=== PATIENT | female | born 1980 | race Caucasian/White ===

== ENCOUNTER 2017-03-21 17:24 | Emergency (ER) | payer SELFPAY ==
--- NOTE | 2017-03-21 17:58 | EDM.PDOC ---
ED HPI GENERAL MEDICAL PROBLEM - General Chief Complaint: Medication Administration Stated Complaint: UNK Time Seen by Provider: 03/21/17 17:34 - History of Present Illness INITIAL COMMENTS - FREE TEXT/NARRATIVE: HISTORY AND PHYSICAL: History of present illness: The patient is a 36-year-old female who presents requesting a medication refill for her Seroquel as she has "misplaced them". Patient follows at [facility] with Shara Maher and states that she misplaced her medication and that without her Seroquel she starts feeling off balance and somewhat "citlali" and she is concerned about that occurring and wants to intercept that. She says she is unable to sleep without this medication as well. Patient denies any systemic complaints and has been eating and drinking normally. Review of systems: As per history of present illness and below otherwise all systems reviewed and negative. Past medical history: As per history of present illness and as reviewed below otherwise noncontributory. Surgical history: As per history of present illness and as reviewed below otherwise noncontributory. Social history: No reported history of drug or alcohol abuse. Family history: As per history of present illness and as reviewed below otherwise noncontributory. Physical exam: Gen.: Well-developed well-nourished female who is nontoxic and vital signs reviewed by me. She has a somewhat flat effect on my interaction with speaks clearly and easily and is cooperative HEENT: Atraumatic, normocephalic, negative for conjunctival pallor or scleral icterus, mucous membranes moist, neck supple, nontender, trachea midline. Lungs: Clear to auscultation, breath sounds equal bilaterally, chest nontender. Heart: S1S2, regular rate and rhythm no overt murmurs Abdomen: Deferred Pelvis: Deferred Genitourinary: Deferred. Rectal: Deferred. Extremities: Atraumatic, full range of motion without defects or deficits Neurovascular grossly unremarkable. Neuro: Awake, alert, oriented. Gait intact into the ER Motor and sensory unremarkable throughout. Exam nonfocal. Diagnostics: [] Therapeutics: [] Discussed with the patient for some time about my discomfort with riding her prescription for Seroquel and in fact no pharmacies are open nor does [facility] have this medication currently. I agreed to give her 1 dose of her Seroquel 300 mg to take now and have advised her to contact her provider at [facility] first thing in the morning to get an appointment for a refill. I advised her that if she is unable to get in the clinic that she can call our clinic at 8 AM to get an expedited ER follow-up and address her concerns and issues. Please note that she did tell nursing when she was being triaged that when she called [facility] and she about a refill order she says that they told her they had "no record of that refill". The patient seems agreeable with this plan and understands my concerns with writing prescriptions of a drug for this problem without being her primary provider. Impression: Medication refill Definitive disposition and diagnosis as appropriate pending reevaluation and review of above. - Related Data Allergies Allergy/AdvReac Type Severity Reaction Status Date / Time amoxicillin Allergy Vomiting Verified 03/21/17 17:35 Home Meds: Home Meds Eszopiclone [Lunesta] 2 mg PO DAILY 03/21/17 [History] QUEtiapine Fumarate [Seroquel] 300 mg PO DAILY 03/21/17 [History] Past Medical History HEENT History: Reports: None Cardiovascular History: Reports: None Respiratory History: Reports: None Gastrointestinal History: Reports: None Genitourinary History: Reports: None HOME CARE COMPANION History: Reports: None Musculoskeletal History: Reports: None Neurological History: Reports: None Psychiatric History: Reports: ADD, Bipolar, Depression Endocrine/Metabolic History: Reports: None Hematologic History: Reports: None Immunologic History: Reports: None Oncologic (Cancer) History: Reports: None Dermatologic History: Reports: None - Infectious Disease History Infectious Disease History: Reports: Chicken Pox - Past Surgical History Head Surgeries/Procedures: Reports: None HEENT Surgical History: Reports: None Cardiovascular Surgical History: Reports: None Respiratory Surgical History: Reports: None GI Surgical History: Reports: None Female Surgical History: Reports: None Neurological Surgical History: Reports: None Musculoskeletal Surgical History: Reports: None Dermatological Surgical History: Reports: None Social & Family History - Family History Family Medical History: Noncontributory - Tobacco Use Smoking Status *Q: Never Smoker - Caffeine Use Caffeine Use: Reports: Coffee - Recreational Drug Use Recreational Drug Use: No ED ROS GENERAL - Review of Systems Review Of Systems: ROS reveals no pertinent complaints other than HPI. ED EXAM, GENERAL - Physical Exam Exam: See Below (see dictation) Course - Vital Signs Last Recorded V/S: Last Vital Signs Temp 37.1 C 03/21/17 17:36 Pulse 88 03/21/17 17:36 Resp 18 03/21/17 17:36 BP 103/68 03/21/17 17:36 Pulse Ox 99 03/21/17 17:36 - Orders/Labs/Meds Orders: Active Orders 24 hr Category Date Time Status QUEtiapine [SEROquel] Med 03/22/17 17:48 Once 300 mg PO ONETIME ONE Medication Orders Quetiapine Fumarate (Seroquel) 300 mg PO ONETIME ONE Stop: 03/22/17 17:49 Meds: Medications Generic Name Dose Route Start Last Admin Trade Name Freq PRN Reason Stop Dose Admin Quetiapine Fumarate 300 mg 03/22/17 17:48 Seroquel PO 03/22/17 17:49 ONETIME ONE Departure - Departure Time of Disposition: 17:58 Disposition: Home, Self-Care 01 Condition: Good Clinical Impression: Medication refill - Discharge Information Referrals: Aparna Maher NP [Primary Care Provider] - Additional Instructions: The following information is given to patients seen in the emergency department who are being discharged to home. This information is to outline your options for follow-up care. We provide all patients seen in our emergency department with a follow-up referral. The need for follow-up, as well as the timing and circumstances, are variable depending upon the specifics of your emergency department visit. If you don't have a primary care physician on staff, we will provide you with a referral. We always advise you to contact your personal physician following an emergency department visit to inform them of the circumstance of the visit and for follow-up with them and/or the need for any referrals to a consulting specialist. The emergency department will also refer you to a specialist when appropriate. This referral assures that you have the opportunity for followup care with a specialist. All of these measure are taken in an effort to provide you with optimal care, which includes your followup. Under all circumstances we always encourage you to contact your private physician who remains a resource for coordinating your care. When calling for followup care, please make the office aware that this follow-up is from your recent emergency room visit. If for any reason you are refused follow-up, please contact the [facility] emergency department at and ask to speak to the emergency department charge nurse. [facility] [address] [place], [place] [id number] [facility] [address] [place], [place] [phone] Please contact her provider at [facility] tomorrow for a follow-up appointment and refill for your prescription for one of our providers for an expedited ER follow-up as we discussed. Return to ER as needed - My Orders Last 24 Hours: My Active Orders 03/22/17 17:48 QUEtiapine [SEROquel] 300 mg PO ONETIME ONE - Assessment/Plan Last 24 Hours: My Active Orders 03/22/17 17:48 QUEtiapine [SEROquel] 300 mg PO ONETIME ONE
[2017-03-21 18:45] VITALS: BP 103/68
[2017-03-22] MEDS ORDERED: QUEtiapine 100 MG Tab PO ONE (17:48)
== END 2017-03-21 18:26 | disposition home or self-care (01) ==
LOC: MW.ED 17:24
DX: Z76.0 Encounter for issue of repeat prescription (principal); Z88.1 Allergy status to other antibiotic agents; Z79.899 Other long term (current) drug therapy
CPT/HCPCS: 99281; A9270; 99282

== ENCOUNTER 2017-11-21 11:42 | Emergency (ER) | payer BC ==
[2017-11-21 11:53] VITALS: BP 115/88
--- NOTE | 2017-11-21 12:06 | EDM.PDOC ---
ED HPI GENERAL MEDICAL PROBLEM - General Chief Complaint: General Stated Complaint: PT WOULD LIKE TO REFILL HER Rx Time Seen by Provider: 11/21/17 12:00 Source of Information: Reports: Patient History Limitations: Reports: No Limitations - History of Present Illness INITIAL COMMENTS - FREE TEXT/NARRATIVE: HISTORY AND PHYSICAL: History of present illness: [Comes to the emergency room requesting a refill of her medication. She ran out of it several days ago and is unable to reach her local pharmacy today as they' re closed on Sundays. She takes Seroquel for stabilization and has been out of this medication for the last several days. She follows regularly with Daisha Richard and is scheduled for follow-up on Wednesday. She has no worsening complaints or concerns but doesn't want to miss any more doses of her medication. Review of systems: As per history of present illness and below otherwise all systems reviewed and negative. Past medical history: As per history of present illness and as reviewed below otherwise noncontributory. Surgical history: As per history of present illness and as reviewed below otherwise noncontributory. Social history: No reported history of drug or alcohol abuse. Family history: As per history of present illness and as reviewed below otherwise noncontributory. Physical exam: HEENT: Atraumatic, normocephalic. luciano. Negative for masses or hepatosplenomegaly. Negative for costovertebral tenderness. Pelvis: Stable nontender. Genitourinary: Deferred. Rectal: Deferred. Extremities: Atraumatic in appearance, full range of motion without difficulty. No swelling or cyanosis to her feet or lower legs. Neurovascular unremarkable. Neuro: Awake, alert, oriented. Motor and sensory unremarkable throughout. Exam nonfocal. Impression: [ Medication refill] Plan: [Written Rx's for Seroquel 300mg (#30) si po qhs 0 RF's, Seroquel 50mg (#30 ) si po qhs 0 RF's. follow-up with provider as scheduled. Return to ER as needed as discussed. She is in agreement with today's plan. ] Definitive disposition and diagnosis as appropriate pending reevaluation and review of above. - Related Data Allergies Allergy/AdvReac Type Severity Reaction Status Date / Time amoxicillin Allergy Vomiting Verified 03/21/17 17:35 Home Meds: Home Meds QUEtiapine Fumarate [Seroquel] 350 mg PO DAILY 03/21/17 [History] Zolpidem Tartrate [Ambien Cr] 1 tab PO BEDTIME 11/21/17 [History] Past Medical History HEENT History: Reports: None Cardiovascular History: Reports: None Respiratory History: Reports: None Gastrointestinal History: Reports: None Genitourinary History: Reports: None TERMINATION CLERK History: Reports: None Musculoskeletal History: Reports: None Neurological History: Reports: None Psychiatric History: Reports: ADD, Bipolar, Depression Endocrine/Metabolic History: Reports: None Hematologic History: Reports: None Immunologic History: Reports: None Oncologic (Cancer) History: Reports: None Dermatologic History: Reports: None - Infectious Disease History Infectious Disease History: Reports: Chicken Pox - Past Surgical History Head Surgeries/Procedures: Reports: None HEENT Surgical History: Reports: None Cardiovascular Surgical History: Reports: None Respiratory Surgical History: Reports: None GI Surgical History: Reports: None Female Surgical History: Reports: None Neurological Surgical History: Reports: None Other Musculoskeletal Surgeries/Procedures:: right ankle surgery Dermatological Surgical History: Reports: None Social & Family History - Family History Family Medical History: Noncontributory - Tobacco Use Smoking Status *Q: Current Some Day Smoker Years of Tobacco use: 10 Packs/Tins Daily: 0.1 - Caffeine Use Caffeine Use: Reports: Coffee - Recreational Drug Use Recreational Drug Use: No ED ROS GENERAL - Review of Systems Review Of Systems: ROS reveals no pertinent complaints other than HPI. ED EXAM, GENERAL - Physical Exam Exam: See Below Course - Vital Signs Last Recorded V/S: Last Vital Signs Temp 98.1 F 11/21/17 11:51 Pulse 76 11/21/17 11:51 Resp 18 11/21/17 11:51 BP 115/88 11/21/17 11:51 Pulse Ox 96 11/21/17 11:51 Departure - Departure Time of Disposition: 12:10 Disposition: Home, Self-Care 01 Condition: Good Clinical Impression: Medication refill - Discharge Information Instructions: Medicine Refill at the Emergency Department Referrals: PCP,None [Primary Care Provider] - Forms: ED Department Discharge Additional Instructions: The following information is given to patients seen in the emergency department who are being discharged to home. This information is to outline your options for follow-up care. We provide all patients seen in our emergency department with a follow-up referral. The need for follow-up, as well as the timing and circumstances, are variable depending upon the specifics of your emergency department visit. If you don't have a primary care physician on staff, we will provide you with a referral. We always advise you to contact your personal physician following an emergency department visit to inform them of the circumstance of the visit and for follow-up with them and/or the need for any referrals to a consulting specialist. The emergency department will also refer you to a specialist when appropriate. This referral assures that you have the opportunity for follow-up care with a specialist. All of these measure are taken in an effort to provide you with optimal care, which includes your follow-up. Under all circumstances we always encourage you to contact your private physician who remains a resource for coordinating your care. When calling for follow-up care, please make the office aware that this follow-up is from your recent emergency room visit. If for any reason you are refused follow-up, please contact the [facility] emergency department at and asked to speak to the emergency department charge nurse. [facility] [address] [place] [id number] Follow-up with your doctor if you have scheduled for Wednesday. Take all medications as prescribed. Return to ER as needed as discussed.
== END 2017-11-21 12:15 | disposition home or self-care (01) ==
LOC: MW.ED 11:42
DX: Z76.0 Encounter for issue of repeat prescription (principal); F17.210 Nicotine dependence, cigarettes, uncomplicated; F31.9 Bipolar disorder, unspecified; F98.8 Other specified behavioral and emotional disorders with onset usually occurring in childhood and adolescence; Z79.899 Other long term (current) drug therapy; Z88.1 Allergy status to other antibiotic agents
CPT/HCPCS: 99281

== ENCOUNTER 2019-02-21 12:44 | Emergency (ER) | payer BC, OTHER ==
[2019-02-21 12:55] VITALS: BP 132/88; PULSE 80
--- NOTE | 2019-02-21 13:15 | EDM.PDOC ---
ED HPI GENERAL MEDICAL PROBLEM - General Chief Complaint: MERCHANDISER Problem Stated Complaint: SPOKE WITH NURSE Time Seen by Provider: 02/21/19 12:48 Source of Information: Reports: Patient History Limitations: Reports: No Limitations - History of Present Illness INITIAL COMMENTS - FREE TEXT/NARRATIVE: History of present illness: []Patient states she is 6 weeks by dates and having left lower pelvic pain. Concerned she may have an ectopic . [facility] that was positive and also did one at home prior to that appointment. She denies any vaginal bleeding or pain with urination, nausea, vomiting or discharge. Review of systems: As per history of present illness and below otherwise all systems reviewed and negative. Past medical history: As per history of present illness and as reviewed below otherwise noncontributory. Surgical history: As per history of present illness and as reviewed below otherwise noncontributory. Social history: No reported history of drug or alcohol abuse. Family history: As per history of present illness and as reviewed below otherwise noncontributory. Physical exam: General: Well developed, well nourished in NAD HEENT: Atraumatic, normocephalic, pupils reactive, negative for conjunctival pallor or scleral icterus, mucous membranes moist, throat clear, neck supple, nontender, trachea midline. Lungs: Clear to auscultation, breath sounds equal bilaterally, chest nontender. Heart: S1S2, regular, negative for clicks, rubs, or JVD. Abdomen: NABS, Soft, nondistended, nontender. Negative for masses or hepatosplenomegaly. Negative for costovertebral tenderness. Pelvis: Stable nontender. Genitourinary: Deferred. Rectal: Deferred. Extremities: Atraumatic, negative for cords or calf pain. Neurovascular unremarkable. Neuro: Awake, alert, oriented. Cranial nerves II through XII unremarkable. Cerebellum unremarkable. Motor and sensory unremarkable throughout. Exam nonfocal. Skin:warm and dry Diagnostics: HCG Quant transvaginal ultrasound- 6 week 2 day IUP, left ovary with collapsing corpus luteum cyst Therapeutics: None ED Course: Stable Impression: IUP 6 weeks 2 days Prescriptions: none Plan: Take meds as directed, follow up with your primary care physician, return to ER if symptoms worsen or change. Definitive disposition and diagnosis as appropriate pending reevaluation and review of above. - Related Data Allergies Allergy/AdvReac Type Severity Reaction Status Date / Time amoxicillin Allergy Vomiting Verified 02/21/19 12:51 Home Meds: Home Meds QUEtiapine Fumarate [Seroquel] 350 mg PO DAILY 03/21/17 [History] Zolpidem [Ambien] 10 mg PO BEDTIME 02/21/19 [History] Past Medical History HEENT History: Reports: None Cardiovascular History: Reports: None Respiratory History: Reports: None Gastrointestinal History: Reports: None Genitourinary History: Reports: None MERCHANDISER History: Reports: Musculoskeletal History: Reports: None Neurological History: Reports: None Psychiatric History: Reports: ADD, Bipolar, Depression Endocrine/Metabolic History: Reports: None Hematologic History: Reports: None Immunologic History: Reports: None Oncologic (Cancer) History: Reports: None Dermatologic History: Reports: None - Infectious Disease History Infectious Disease History: Reports: Chicken Pox - Past Surgical History Head Surgeries/Procedures: Reports: None HEENT Surgical History: Reports: None Cardiovascular Surgical History: Reports: None Respiratory Surgical History: Reports: None GI Surgical History: Reports: None Female Surgical History: Reports: None Neurological Surgical History: Reports: None Other Musculoskeletal Surgeries/Procedures:: right ankle surgery Dermatological Surgical History: Reports: None Social & Family History - Family History Family Medical History: Noncontributory - Tobacco Use Smoking Status *Q: Never Smoker Second Hand Smoke Exposure: No - Caffeine Use Caffeine Use: Reports: None - Recreational Drug Use Recreational Drug Use: No ED ROS GENERAL - Review of Systems Review Of Systems: See Below ED EXAM - Physical Exam Exam: See Below Course - Vital Signs Last Recorded V/S: Last Vital Signs Temp 97.3 F 02/21/19 12:53 Pulse 80 02/21/19 12:53 Resp 16 02/21/19 12:53 BP 132/88 02/21/19 12:53 Pulse Ox 99 02/21/19 12:53 - Orders/Labs/Meds Orders: Active Orders 24 hr Category Date Time Status OB Transvaginal [US] Stat Exams 02/21/19 13:04 Ordered HCG QUANTITATIVE [CHEM] Stat Lab 02/21/19 13:23 Received Departure - Departure Time of Disposition: 13:51 Disposition: Home, Self-Care 01 Condition: Good Clinical Impression: Threatened Qualifiers: Weeks of gestation: less than 8 weeks Qualified Code(s): Z3A.01 - Less than 8 weeks gestation of Clinical Impression: (Ruled Out): Normal IUP (intrauterine ) on ultrasound - Discharge Information *PRESCRIPTION DRUG MONITORING PROGRAM REVIEWED*: No *COPY OF PRESCRIPTION DRUG MONITORING REPORT IN PATIENT MAC: No Referrals: PCP,Unknown [Primary Care Provider] - Forms: ED Department Discharge Additional Instructions: The following information is given to patients seen in the emergency department who are being discharged to home. This information is to outline your options for follow-up care. We provide all patients seen in our emergency department with a follow-up referral. The need for follow-up, as well as the timing and circumstances, are variable depending upon the specifics of your emergency department visit. If you don't have a primary care physician on staff, we will provide you with a referral. We always advise you to contact your personal physician following an emergency department visit to inform them of the circumstance of the visit and for follow-up with them and/or the need for any referrals to a consulting specialist. The emergency department will also refer you to a specialist when appropriate. This referral assures that you have the opportunity for follow-up care with a specialist. All of these measure are taken in an effort to provide you with optimal care, which includes your follow-up. Under all circumstances we always encourage you to contact your private physician who remains a resource for coordinating your care. When calling for follow-up care, please make the office aware that this follow-up is from your recent emergency room visit. If for any reason you are refused follow-up, please contact the [facility] Emergency Department at and asked to speak to the emergency department charge nurse. Take meds as directed, follow up with your primary care physician, return to ER if symptoms worsen or change. [facility] - [facility] [address] [place] [id number] - My Orders Last 24 Hours: My Active Orders 02/21/19 13:04 OB Transvaginal [US] Stat 02/21/19 13:23 HCG QUANTITATIVE [CHEM] Stat - Assessment/Plan Last 24 Hours: My Active Orders 02/21/19 13:04 OB Transvaginal [US] Stat 02/21/19 13:23 HCG QUANTITATIVE [CHEM] Stat
--- NOTE | 2019-02-21 14:38 | US ---
1st trimester obstetrical ultrasound: Multiple real-time images were obtained transvaginally. Comparison: No previous study. Dates: LMP: LMP given as 01/12/19, MIKEL 10/19/19, gestational age 5 weeks 5 days Current ultrasound: MIKEL 10/16/19, gestational age 6 weeks 1 day Single intrauterine gestation is seen. Amniotic fluid volume is normal. Small pole is seen. Maternal ovaries are felt to be within normal limits. Measurements: [place]-rump length: 2.74 mm - 6 weeks 0 days Mean sac diameter: 1.50 cm - 6 weeks 2 days Heart rate: 97 BPM Impression: 1. Single intrauterine gestation. Dates as noted above. 2. Low heart activity believed to be due to early gestational age. 3. No complicating process is seen by ultrasound at this time. Diagnostic code #2 [id number]
== END 2019-02-21 14:02 | disposition home or self-care (01) ==
LOC: MW.ED 12:44
DX: O20.0 Threatened abortion (principal); O99.341 Other mental disorders complicating pregnancy, first trimester; F32.9 Major depressive disorder, single episode, unspecified; F90.9 Attention-deficit hyperactivity disorder, unspecified type; Z88.1 Allergy status to other antibiotic agents; Z79.899 Other long term (current) drug therapy; Z3A.01 Less than 8 weeks gestation of pregnancy
CPT/HCPCS: 36415; 76817; 76817-26; 84702; 99283; 99284-25

== ENCOUNTER 2019-03-27 21:49 | Emergency (ER) | payer OTHER ==
--- NOTE | 2019-03-27 22:24 | EDM.PDOC ---
ED HPI GENERAL MEDICAL PROBLEM - General Chief Complaint: Abdominal Pain Stated Complaint: CONSTIPATION Time Seen by Provider: 03/27/19 21:56 Source of Information: Reports: Patient History Limitations: Reports: No Limitations - History of Present Illness INITIAL COMMENTS - FREE TEXT/NARRATIVE: HISTORY AND PHYSICAL: History of present illness: Patient is a 38-year-old female presents to the ED today with concern of having constipation in . Patient states she is only here in the ED because she wants to know what she can safely take for constipation. Patient states she has tried drinking more water, eating more fruits and vegetables, herbal supplementation, and exercise. Patient states she has not tried any over-the- counter medications. Patient states she's having a bowel movement every other day but she is used to having a bowel movement daily. Patient states that she brought up the constipation with her provider at [facility] but does not feel like she had a full explanation to what to do. Patient states she has been scared to eat because she has not had regular bowel movements. Patient denies any other symptoms or concerns. Patient denies fever, chills, chest pain, shortness of breath, or cough. Denies headache, neck stiff ness, change in vision, syncope, or near syncope. Denies nausea, vomiting, abdominal pain, diarrhea, or dysuria. Has not noted any blood in urine or stool. Patient has been eating and drinking appropriately. Review of systems: As per history of present illness and below otherwise all systems reviewed and negative. Past medical history: As per history of present illness and as reviewed below otherwise noncontributory. Surgical history: As per history of present illness and as reviewed below otherwise noncontributory. Social history: See social history for further information Family history: As per history of present illness and as reviewed below otherwise noncontributory. Physical exam: General: Patient is alert, oriented, and in no acute distress. Patient sitting comfortably on exam table. HEENT: Atraumatic, normocephalic, pupils equal and reactive bilaterally, negative for conjunctival pallor or scleral icterus, mucous membranes moist, TMs normal bilaterally, throat clear, neck supple, nontender, trachea midline. No drooling or trismus noted. No meningeal signs. No hot potato voice noted. Lungs: Clear to auscultation, breath sounds equal bilaterally, chest nontender. Heart: S1S2, regular rate and rhythm without overt murmur Abdomen: Soft, nondistended, nontender. Negative for masses or hepatosplenomegaly. Negative for costovertebral tenderness. Pelvis: Stable nontender. Genitourinary: Deferred. Rectal: Deferred. Skin: Intact, warm, dry. No lesions or rashes noted. Extremities: Atraumatic, negative for cords or calf pain. Neurovascular unremarkable. Neuro: Awake, alert, oriented. Cranial nerves II through XII unremarkable. Cerebellum unremarkable. Motor and sensory unremarkable throughout. Exam nonfocal. Notes: Discussed the importance for follow-up with her [employer] women's health provider. Voices understanding and is agreeable to plan of care. Denies any further questions or concerns at this time. Diagnostics: None Therapeutics: None Prescription: None Impression: Medical screening exam History of constipation Plan: 1. You can use Colace, MiraLAX, Metamucil, milk of magnesia safely in for constipation symptoms. 2. Follow-up with your [employer] provider as scheduled and as discussed. 3. You can use Tylenol as directed for pain and discomfort. This is also safe to use in . 4. Return to the ED as needed and as discussed. Definitive disposition and diagnosis as appropriate pending reevaluation and review of above. ABD Pain Score (Numeric/FACES): 5 - Related Data Allergies Allergy/AdvReac Type Severity Reaction Status Date / Time amoxicillin Allergy Vomiting Verified 03/27/19 22:10 Home Meds: Home Meds QUEtiapine Fumarate [Seroquel] 350 mg PO DAILY 03/21/17 [History] Zolpidem [Ambien] 10 mg PO BEDTIME 02/21/19 [History] Past Medical History HEENT History: Reports: None Cardiovascular History: Reports: None Respiratory History: Reports: None Gastrointestinal History: Reports: None Genitourinary History: Reports: None [employer] History: Reports: Musculoskeletal History: Reports: None Neurological History: Reports: None Psychiatric History: Reports: ADD, Bipolar, Depression Endocrine/Metabolic History: Reports: None Hematologic History: Reports: None Immunologic History: Reports: None Oncologic (Cancer) History: Reports: None Dermatologic History: Reports: None - Infectious Disease History Infectious Disease History: Reports: Chicken Pox - Past Surgical History Head Surgeries/Procedures: Reports: None HEENT Surgical History: Reports: None Cardiovascular Surgical History: Reports: None Respiratory Surgical History: Reports: None GI Surgical History: Reports: None Female Surgical History: Reports: None Neurological Surgical History: Reports: None Other Musculoskeletal Surgeries/Procedures:: right ankle surgery Dermatological Surgical History: Reports: None Social & Family History - Family History Family Medical History: Noncontributory - Caffeine Use Caffeine Use: Reports: None ED ROS GENERAL - Review of Systems Review Of Systems: ROS reveals no pertinent complaints other than HPI. ED EXAM, GENERAL - Physical Exam Exam: See Below (See dictation) Course - Vital Signs Last Recorded V/S: Last Vital Signs Temp 96.8 F 03/27/19 22:05 Pulse 81 03/27/19 22:05 Resp 16 03/27/19 22:05 BP 122/82 03/27/19 22:05 Pulse Ox 99 03/27/19 22:05 Departure - Departure Time of Disposition: 22:23 Disposition: Home, Self-Care 01 Clinical Impression: Encounter for medical screening examination, History of constipation - Discharge Information Referrals: PCP,None [Primary Care Provider] - Forms: ED Department Discharge Additional Instructions: The following information is given to patients seen in the emergency department who are being discharged to home. This information is to outline your options for follow-up care. We provide all patients seen in our emergency department with a follow-up referral. The need for follow-up, as well as the timing and circumstances, are variable depending upon the specifics of your emergency department visit. If you don't have a primary care physician on staff, we will provide you with a referral. We always advise you to contact your personal physician following an emergency department visit to inform them of the circumstance of the visit and for follow-up with them and/or the need for any referrals to a consulting specialist. The emergency department will also refer you to a specialist when appropriate. This referral assures that you have the opportunity for follow-up care with a specialist. All of these measure are taken in an effort to provide you with optimal care, which includes your follow-up. Under all circumstances we always encourage you to contact your private physician who remains a resource for coordinating your care. When calling for follow-up care, please make the office aware that this follow-up is from your recent emergency room visit. If for any reason you are refused follow-up, please contact the [facility] Emergency Department at and asked to speak to the emergency department charge nurse. JT Tavarez [facility] [address], [place] [address] [facility] [address] [place] [id number] [facility] [address] [place] [address] 1. You can use Colace, MiraLAX, Metamucil, milk of magnesia safely in for constipation symptoms. 2. Follow-up with your [employer] provider as scheduled and as discussed. 3. You can use Tylenol as directed for pain and discomfort. This is also safe to use in . 4. Return to the ED as needed and as discussed.
[2019-03-27 22:26] VITALS: BP 122/82; PULSE 81
== END 2019-03-27 22:30 | disposition home or self-care (01) ==
LOC: MW.ED 21:49
DX: O99.619 Diseases of the digestive system complicating pregnancy, unspecified trimester (principal); K59.00 Constipation, unspecified; F32.9 Major depressive disorder, single episode, unspecified; Z87.19 Personal history of other diseases of the digestive system; Z88.0 Allergy status to penicillin
CPT/HCPCS: 99283

== ENCOUNTER 2020-11-26 14:34 | Emergency (ER) | payer OTHER | END 2020-11-26 14:41 | disposition left against medical advice (07) | LOC: MW.ED 14:34 | DX: K59.00 Constipation, unspecified (principal); Z53.21 Procedure and treatment not carried out due to patient leaving prior to being seen by health care provider ==

== ENCOUNTER 2021-03-12 17:48 | Emergency (ER) | payer OTHER ==
[2021-03-12 20:05] VITALS: BP 116/82; PULSE 66
--- NOTE | 2021-03-12 20:46 | EDM.PDOC ---
ED HPI GENERAL MEDICAL PROBLEM - General Chief Complaint: Medication Administration Stated Complaint: NEEDS PSYC MEDS Time Seen by Provider: 03/12/21 20:12 Source of Information: Reports: Patient History Limitations: Reports: No Limitations - History of Present Illness INITIAL COMMENTS - FREE TEXT/NARRATIVE: HISTORY AND PHYSICAL: History of present illness: Patient is a 40-year-old female who presents emergency room today with concern for medication refill of diazepam. Patient states that she is in a diazepam taper and states that she was initially on clonazepam and recently has been switched over to try to come off benzodiazepines. Patient states that initially she was on Seroquel and states that she had a hard time stopping Seroquel. Patient states that the reason they were stopping it if she was trying to get and they did not want her on this medication during . Patient states that she had terrible withdrawal symptoms so in the meantime, her psychiatry provider had put her on benzodiazepines. Patient states she was originally on clonidine but states that they had switched her to diazepam so that they could taper her off of it and switch to something that is safer during . Patient states that the diazepam she is currently on is compounded through a pharmacy in [place] and states that it is in liquid form so that she is able to slowly taper it. Patient states that she is currently on 15 mg of diazepam and states that each week she drops on 1 mg. Patient states that this next week she is supposed to go down to 14 mg, then 30 mg, etc. Patient states that this medication requires being refrigerated and states that she went on a trip over the weekend to [place] and left it in her friend's fridge when she left. Patient states that she felt like she could not asked a friend to send it in the mail as this would require refrigeration mailing. Patient states that she tried to recall her provider to get it refilled but they have not been answering the phones and the pharmacy requests. Patient states that she does have an appointment with her psychiatrist on Wednesday and just needs enough to get through to Wednesday. Denies any other symptoms or concerns. Patient denies fever, chills, chest pain, shortness of breath, or cough. Denies headache, neck stiff ness, change in vision, syncope, or near syncope. Denies na usea, vomiting, abdominal pain, diarrhea, constipation, or dysuria. Has not noted any blood in urine or stool. Patient has been eating and drinking appropriately. Review of systems: As per history of present illness and below otherwise all systems reviewed and negative. Past medical history: As per history of present illness and as reviewed below otherwise noncontributory. Surgical history: As per history of present illness and as reviewed below otherwise noncontributory. Social history: See social history for further information Family history: As per history of present illness and as reviewed below otherwise noncontributory. Physical exam: General: Patient is alert, oriented, and in no acute distress. Patient sitting comfortably on exam table. Vitals stable and reviewed by me. HEENT: Atraumatic, normocephalic, pupils equal and reactive bilaterally, negative for conjunctival pallor or scleral icterus, mucous membranes moist, TMs normal bilaterally, throat clear, neck supple, nontender, trachea midline. No drooling or trismus noted. No meningeal signs. No hot potato voice noted. Lungs: Clear to auscultation, breath sounds equal bilaterally, chest nontender. Heart: S1S2, regular rate and rhythm without overt murmur Abdomen: Soft, nondistended, nontender. Negative for masses or hepatosplenomegaly. Negative for costovertebral tenderness. Pelvis: Stable nontender. Genitourinary: Deferred. Rectal: Deferred. Skin: Intact, warm, dry. No lesions or rashes noted. Extremities: Atraumatic, negative for cords or calf pain. Neurovascular unremarkable. Neuro: Awake, alert, oriented. Cranial nerves II through XII unremarkable. Cerebellum unremarkable. Motor and sensory unremarkable throughout. Exam nonfocal. Notes: Signs and symptoms that would prompt return to the ED thoroughly discussed with patient. Discussed importance of follow-up with her psychiatrist as scheduled. Voices understanding and is agreeable to plan of care. Denies any further questions or concerns at this time. Diagnostics: None Therapeutics: None Prescription: Diazepam Impression: Encounter for medication refill Plan: Follow-up with your psychiatrist as scheduled and as discussed. Return to the ED as needed and as discussed. Definitive disposition and diagnosis as appropriate pending reevaluation and review of above. 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 - Related Data Allergies Allergy/AdvReac Type Severity Reaction Status Date / Time amoxicillin Allergy Vomiting Verified 03/27/19 22:10 Home Meds: Home Meds Rifaximin [Xifaxan] 03/12/21 [History] diazePAM [Diazepam] 15 mg PO BEDTIME 03/12/21 [History] diazePAM [Valium] 10 mg PO BEDTIME 5 Days #5 tablet 03/12/21 [Rx] Past Medical History HEENT History: Reports: None Cardiovascular History: Reports: None Respiratory History: Reports: None Gastrointestinal History: Reports: None Genitourinary History: Reports: None [employer] History: Reports: Musculoskeletal History: Reports: None Neurological History: Reports: None Psychiatric History: Reports: ADD, Bipolar, Depression Endocrine/Metabolic History: Reports: None Hematologic History: Reports: None Immunologic History: Reports: None Oncologic (Cancer) History: Reports: None Dermatologic History: Reports: None - Infectious Disease History Infectious Disease History: Reports: Chicken Pox - Past Surgical History Head Surgeries/Procedures: Reports: None HEENT Surgical History: Reports: None Cardiovascular Surgical History: Reports: None Respiratory Surgical History: Reports: None GI Surgical History: Reports: None Female Surgical History: Reports: None Neurological Surgical History: Reports: None Musculoskeletal Surgical History: Reports: None Other Musculoskeletal Surgeries/Procedures:: right ankle surgery Dermatological Surgical History: Reports: None Social & Family History - Family History Family Medical History: No Pertinent Family History - Tobacco Use Tobacco Use Status *Q: Light Tobacco User Years of Tobacco use: 8 Packs/Tins Daily: 0 - Caffeine Use Caffeine Use: Reports: Coffee - Recreational Drug Use Recreational Drug Use: No ED ROS GENERAL - Review of Systems Review Of Systems: Comprehensive ROS is negative, except as noted in HPI. ED EXAM, GENERAL - Physical Exam Exam: See Below (see dictation) Course - Vital Signs Last Recorded V/S: Last Vital Signs Temp 97.0 F 03/12/21 19:57 Pulse 66 03/12/21 19:57 Resp 15 03/12/21 19:57 BP 116/82 03/12/21 19:57 Pulse Ox 100 03/12/21 19:57 Departure - Departure Time of Disposition: 20:46 Disposition: Home, Self-Care 01 Clinical Impression: Medication refill - Discharge Information Prescriptions: diazePAM [Valium] 10 mg PO BEDTIME 5 Days #5 tablet Instructions: Medicine Refill at the Emergency Department Referrals: Jovany Cuevas MD [Primary Care Provider] - Forms: ED Department Discharge Additional Instructions: The following information is given to patients seen in the emergency department who are being discharged to home. This information is to outline your options for follow-up care. We provide all patients seen in our emergency department with a follow-up referral. The need for follow-up, as well as the timing and circumstances, are variable depending upon the specifics of your emergency department visit. If you don't have a primary care physician on staff, we will provide you with a referral. We always advise you to contact your personal physician following an emergency department visit to inform them of the circumstance of the visit and for follow-up with them and/or the need for any referrals to a consulting specialist. The emergency department will also refer you to a specialist when appropriate. This referral assures that you have the opportunity for follow-up care with a specialist. All of these measure are taken in an effort to provide you with optimal care, which includes your follow-up. Under all circumstances we always encourage you to contact your private physician who remains a resource for coordinating your care. When calling for follow-up care, please make the office aware that this follow-up is from your recent emergency room visit. If for any reason you are refused follow-up, please contact the [facility] Emergency Department at and asked to speak to the emergency department charge nurse. [facility] [address] [place] [id number] [address] 1. Take medication as prescribed. Follow-up with Daihsa Velazquez as scheduled and as discussed. Return to the ED as needed and as discussed.
== END 2021-03-12 20:55 | disposition home or self-care (01) ==
LOC: MW.ED 17:48
DX: F13.239 Sedative, hypnotic or anxiolytic dependence with withdrawal, unspecified (principal); Z76.0 Encounter for issue of repeat prescription; Z88.0 Allergy status to penicillin; Z72.0 Tobacco use
CPT/HCPCS: 99281

== ENCOUNTER 2021-06-13 17:10 | Emergency (ER) | payer OTHER ==
--- NOTE | 2021-06-13 20:16 | EDM.PDOC ---
ED HPI GENERAL MEDICAL PROBLEM - General Chief Complaint: Medication Administration Stated Complaint: MEDICATION Time Seen by Provider: 06/13/21 20:06 Source of Information: Reports: Patient History Limitations: Reports: No Limitations - History of Present Illness INITIAL COMMENTS - FREE TEXT/NARRATIVE: HISTORY AND PHYSICAL: History of present illness: The patient is a 40-year-old female who presents to the emergency department for complaints of running out of her diazepam 5 mg that she takes at bedtime. The patient did arrive in the emergency department at 1705 blood due to time constraints was just no brought back to the emergency department after pharmacies have closed. The patient states that she has bipolar and ADHD and has had difficulty sleeping for some time. She states that she is unable to take most SSRIs due to their interaction with her sleep. The patient states that if she is unable to get her medications then she will need to be admitted as she will go into seizures. Patient is an otherwise healthy adult. Patient denies any fever, chills, headache, change in vision, syncope or near syncope. Denies any chest pain, back pain, shortness of breath or cough. Denies any abdominal pain, nausea, vomiting, diarrhea, constipation or dysuria. Has not noted any blood in urine or stool. Patient has been eating and drinking appropriately. Review of systems: As per history of present illness and below otherwise all systems reviewed and negative. Past medical history: As per history of present illness and as reviewed below otherwise noncontribut ory. Surgical history: As per history of present illness and as reviewed below otherwise noncontributory. Social history: See social history for further information Family history: As per history of present illness and as reviewed below otherwise noncontributory. Physical exam: General: Well developed and well nourished. Alert and orientated x 3. Nontoxic in appearance and in no acute distress. Vital signs are stable and have been reviewed by me. Nursing notes were reviewed. HEENT: Atraumatic, normocephalic, pupils equal and reactive bilaterally, negative for conjunctival pallor or scleral icterus, mucous membranes moist, TMs normal bilaterally, throat clear, neck supple, nontender, trachea midline. No drooling or trismus noted. No meningeal signs. No hot potato voice noted. Lungs: Clear to auscultation bilaterally. No wheezes, rales, or rhonchi. Chest nontender. Normal work of breathing, no accessory muscles used. Heart: S1S2, regular rate and rhythm without overt murmur, gallops, or rubs. No JVD. No peripheral edema Abdomen: Soft, nondistended, nontender. Normoactive bowel sounds. Negative for masses or costovertebral tenderness. Skin: Intact, warm, dry. No lesions or rashes noted. Hematologic: No petechiae or purpra. Mucosa appropriate color and normal nail bed color and refill. Extremities: Atraumatic, moves all extremities per self without difficulty or deficits, negative for cords or calf pain. Neurovascular unremarkable. Neuro: Awake, alert, oriented. Cranial nerves II through XII unremarkable. Cerebellum unremarkable. Motor and sensory unremarkable throughout. Exam nonfocal. Psychiatric: Mood and affect are appropriate. Normal thought process. Answering questions appropriately. Notes: *This patient was seen and evaluated during the 2019 SARS-CoV-2 novel coronavirus pandemic period. Community viral transmission is ongoing at time of this encounter and the emergency department is operating under pandemic response procedures. As stated above the patient is a 40-year-old female who presents to the emergency department for complaints of no refills of her diazepam and 5 mg that she takes at bedtime. The patient has been to the emergency department one other time and that was of February of this year for medication refills. I spoke with the patient at length about the need to ensure she has her medications as the emergency department is not a primary care provider. The patient verbalized understanding and states that sometimes she gets a brain fog in the staying slip her mind. I explained to the patient that I am unable to give her diazepam as there are no pharmacies opened until Wednesday due to the holiday. I will prescribe Ativan through the [facility] and the patient is agreeable with this plan. I have talked with the patient about today's findings, in addition to providing specific details for plan of care. Reassessment at the time of disposition demonstrates that the patient is in no acute distress. The patient is stable for discharge, counseling was provided and we discussed in great detail signs and symptoms that would prompt them to return to the Emergency Department. Medication, follow up and supportive care measures were reviewed and discussed. Voices understanding and is agreeable to plan of care. Denies any further questions or concerns at this time. Prescription: Ativan 1 mg at bedtime Impression: Medication refill Plan: 1. You were evaluated today on an emergent basis. Your complaints of running out of your medication was dealt with by providing you with Ativan 1mg at bedtime out of the [facility] as I do not have access to call in a RX for your Valium. Please follow-up with your primary care provider and ensure that you have adequate medication in the future. Please take the medication as p rescribed. If you have any difficulties such as shortness of breath or hives please return to the emergency department. 2. You can alternate Tylenol and ibuprofen as needed for pain and fever manage ment. 3. We encourage you to follow up with your primary care provider and/or recommended specialist in the next few days for re-evaluation and further care/management. 4. If your symptoms should worsen, new symptoms develop or any of the signs and symptoms we discussed should arise please return to the emergency room or call 911 (if needed). Definitive disposition and diagnosis as appropriate pending reevaluation and review of above. - Related Data Allergies Allergy/AdvReac Type Severity Reaction Status Date / Time amoxicillin Allergy Vomiting Verified 03/27/19 22:10 Home Meds: Home Meds Rifaximin [Xifaxan] 03/12/21 [History] Eszopiclone [Lunesta] 06/13/21 [History] Zolpidem [Ambien] 06/13/21 [History] diazePAM [Valium] 13 mg PO BEDTIME 06/13/21 [History] Past Medical History HEENT History: Reports: None Cardiovascular History: Reports: None Respiratory History: Reports: None Gastrointestinal History: Reports: None Genitourinary History: Reports: None TESTING TECH History: Reports: Musculoskeletal History: Reports: None Neurological History: Reports: None Psychiatric History: Reports: ADD, Bipolar, Depression Endocrine/Metabolic History: Reports: None Hematologic History: Reports: None Immunologic History: Reports: None Oncologic (Cancer) History: Reports: None Dermatologic History: Reports: None - Infectious Disease History Infectious Disease History: Reports: Chicken Pox - Past Surgical History Head Surgeries/Procedures: Reports: None HEENT Surgical History: Reports: None Cardiovascular Surgical History: Reports: None Respiratory Surgical History: Reports: None GI Surgical History: Reports: None Female Surgical History: Reports: None Neurological Surgical History: Reports: None Musculoskeletal Surgical History: Reports: None Other Musculoskeletal Surgeries/Procedures:: right ankle surgery Dermatological Surgical History: Reports: None Social & Family History - Family History Family Medical History: No Pertinent Family History Psychiatric: Reports: Depression Oncologic: Reports: Colon - Caffeine Use Caffeine Use: Reports: Coffee - Recreational Drug Use Recreational Drug Use: No ED ROS GENERAL - Review of Systems Review Of Systems: Comprehensive ROS is negative, except as noted in HPI. ED EXAM, GENERAL - Physical Exam Exam: See Below (See dictation) Course - Vital Signs Last Recorded V/S: Last Vital Signs Temp 98.1 F 06/13/21 18:19 Pulse 92 06/13/21 20:34 Resp 18 06/13/21 20:34 BP 118/78 06/13/21 20:34 Pulse Ox 100 06/13/21 20:34 Departure - Departure Time of Disposition: 20:14 Disposition: Home, Self-Care 01 Condition: Good Clinical Impression: Medication refill - Discharge Information *PRESCRIPTION DRUG MONITORING PROGRAM REVIEWED*: Not Applicable *COPY OF PRESCRIPTION DRUG MONITORING REPORT IN PATIENT MAC: Not Applicable Instructions: Generalized Anxiety Disorder, Adult, Aspirin and Your Heart Referrals: PCP,None [Primary Care Provider] - Forms: ED Department Discharge Additional Instructions: The following information is given to patients seen in the emergency department who are being discharged to home. This information is to outline your options for follow-up care. We provide all patients seen in our emergency department with a follow-up referral. The need for follow-up, as well as the timing and circumstances, are variable depending upon the specifics of your emergency department visit. If you don't have a primary care physician on staff, we will provide you with a referral. We always advise you to contact your personal physician following an emergency department visit to inform them of the circumstance of the visit and for follow-up with them and/or the need for any referrals to a consulting specialist. The emergency department will also refer you to a specialist when appropriate. This referral assures that you have the opportunity for follow-up care with a specialist. All of these measure are taken in an effort to provide you with optimal care, which includes your follow-up. Under all circumstances we always encourage you to contact your private physician who remains a resource for coordinating your care. When calling for follow-up care, please make the office aware that this follow-up is from your recent emergency room visit. If for any reason you are refused follow-up, please contact the [facility] Emergency Department at and asked to speak to the emergency department charge nurse. [facility] [address] [place] [id number] [facility] [address] [place] [address] Plan: 1. You were evaluated today on an emergent basis. Your complaints of running out of your medication was dealt with by providing you with Ativan 1mg at bedtime out of the [facility] as I do not have access to call in a RX for your Valium. Please follow-up with your primary care provider and ensure that you have adequate medication in the future. Please take the medication as prescribed. If you have any difficulties such as shortness of breath or hives please return to the emergency department. 2. You can alternate Tylenol and ibuprofen as needed for pain and fever management. 3. We encourage you to follow up with your primary care provider and/or recommended specialist in the next few days for re-evaluation and further care/management. 4. If your symptoms should worsen, new symptoms develop or any of the signs and symptoms we discussed should arise please return to the emergency room or call 911 (if needed). Sepsis Event Note (ED) - Evaluation Sepsis Screening Result: No Definite Risk
[2021-06-13 20:34] VITALS: BP 118/78; PULSE 92
== END 2021-06-13 20:34 | disposition home or self-care (01) ==
LOC: MW.ED 17:10
DX: Z76.0 Encounter for issue of repeat prescription (principal); F32.9 Major depressive disorder, single episode, unspecified; Z88.5 Allergy status to narcotic agent; Z79.899 Other long term (current) drug therapy
CPT/HCPCS: 99281

== ENCOUNTER 2022-09-10 01:12 | Emergency (ER) | payer OTHER ==
[2022-09-10 01:26] VITALS: BP 128/81; PULSE 91
== END 2022-09-10 01:58 | disposition home or self-care (01) ==
LOC: MW.ED 01:12
DX: R00.2 Palpitations (principal); Z88.0 Allergy status to penicillin
CPT/HCPCS: 93005; 93010; 99283; 99284

== ENCOUNTER 2022-11-03 01:19 | Emergency (ER) | payer OTHER ==
[2022-11-03] MEDS ORDERED: Atenolol 25 MG Tab PO ONE (04:48)
[2022-11-03 04:58] VITALS: BP 143/97; PULSE 85
== END 2022-11-03 05:01 | disposition home or self-care (01) ==
LOC: MW.ED 01:19
DX: I51.7 Cardiomegaly (principal); R00.2 Palpitations; Z88.0 Allergy status to penicillin; Z79.899 Other long term (current) drug therapy
CPT/HCPCS: 93005; 99284; A9270

== ENCOUNTER 2023-02-05 17:52 | Emergency (ER) | payer OTHER ==
[2023-02-05 23:46] VITALS: BP 126/81; PULSE 73
== END 2023-02-05 22:15 | disposition home or self-care (01) ==
LOC: MW.ED 17:52
DX: S52.124A Nondisplaced fracture of head of right radius, initial encounter for closed fracture (principal); Z79.899 Other long term (current) drug therapy; Z88.1 Allergy status to other antibiotic agents; W01.0XXA Fall on same level from slipping, tripping and stumbling without subsequent striking against object, initial encounter
CPT/HCPCS: 29105; 73080-26-RT; 73080-RT; 73200-26-RT; 73200-RT; 99283; 99284

== ENCOUNTER 2023-05-03 00:44 | Emergency (ER) | payer OTHER ==
[2023-05-03] MEDS ORDERED: Sodium Chloride 0.9% 10 ML Syringe FLUSH PRN (01:07)
[2023-05-03] MEDS ORDERED: Sodium Chloride 0.9% 2.5 ML Syringe FLUSH PRN (01:07)
[2023-05-03] MEDS ORDERED: Sodium Chloride 0.9% 1,000 ML IV ONE (01:16)
[2023-05-03 01:31] LABS: APPEARANCE,URINE CLEAR; BILIRUBIN,URINE NEGATIVE (NEGATIVE); COLOR,URINE YELLOW; GLUCOSE,URINE NEGATIVE (NEGATIVE); KETONES,URINE NEGATIVE (NEGATIVE); LEUKOCYTE ESTERASE,URINE NEGATIVE (NEGATIVE); NITRITE,URINE NEGATIVE (NEGATIVE); OCCULT BLOOD,URINE TRACE-INTACT (NEGATIVE); PROTEIN,URINE NEGATIVE (NEGATIVE); UROBILINOGEN,URINE 0.2 EU/dL (<2.0)
[2023-05-03 01:31] LABS: BASOPHILS ABSOLUTE AUTO 0.06 K/uL (0.00-0.20); BASOPHILS PERCENT AUTO 0.7 % (0.0-1.0); EOSINOPHILS ABSOLUTE AUTO 0.08 K/uL (0.00-0.45); HEMOGLOBIN 14.5 g/dL (12.0-16.0); IMMATURE GRAN ABSOLUTE AUTO 0.01 K/uL (0.00-0.05); IMMATURE GRAN PERCENT AUTO 0.1 % (0.0-0.4); LYMPHOCYTES ABSOLUTE AUTO 2.92 K/uL (1.00-4.80); LYMPHOCYTES PERCENT AUTO 35.2 % (24.0-44.0); MEAN CORPUSCULAR HEMOGLOBIN 33.3 pg (28.0-32.0); MEAN CORPUSCULAR HGB CONC 34.5 g/dL (32.0-36.0); MEAN CORPUSCULAR VOLUME 96.3 fL (83.0-99.0); MEAN PLATELET VOLUME 10.4 fL (9.4-12.3); MONOCYTES ABSOLUTE AUTO 0.91 K/uL (0.00-0.80); NEUTROPHILS ABSOLUTE AUTO 4.32 K/uL (1.80-7.70); PLATELET COUNT,PLT 282 K/uL (150-400); RED BLOOD CELL COUNT 4.36 M/uL (4.10-5.30)
[2023-05-03 01:37] LABS: BACTERIA,URINE 1+ (NEGATIVE); MUCUS,URINE LIGHT (NONE-MOD); SQUAMOUS EPITHELIAL CELLS,UR FEW; WBC,URINE 0-2 (0-5/HPF)
[2023-05-03 01:50] LABS: CARBON DIOXIDE,CO2 28.7 mmol/L (21.0-32.0); CREATININE 0.9 mg/dL (0.6-1.0); POTASSIUM,K 3.6 mmol/L (3.5-5.1)
[2023-05-03 01:51] LABS: A/G RATIO 1.1 (0.9-1.6); ALBUMIN 3.9 g/dL (3.4-5.0); BILIRUBIN TOTAL 0.3 mg/dL (0.2-1.0); CALCIUM 8.8 mg/dL (8.5-10.1); EST CRCL DRUG DOSING (CG) 86.84 mL/min; PROTEIN TOTAL,TP 7.5 g/dL (6.4-8.2)
[2023-05-03] MEDS ORDERED: Iopamidol 755 MG/ML 500 ML Multipack Bottle IVPUSH STA (02:04)
[2023-05-03] MEDS ORDERED: Acetaminophen 500 MG Tab PO ONE ×2 (02:39)
[2023-05-03 03:31] VITALS: BP 110/74; PULSE 71
== END 2023-05-03 03:30 | disposition home or self-care (01) ==
LOC: MW.ED 00:44
DX: R10.32 Left lower quadrant pain (principal); R10.31 Right lower quadrant pain; Z87.891 Personal history of nicotine dependence; Z88.0 Allergy status to penicillin; Z79.899 Other long term (current) drug therapy
CPT/HCPCS: 36415; 74177; 80053; 81001; 81025; 85025; 87086; 99284; A9270; J3490; J7030; Q9967

== ENCOUNTER 2023-11-12 23:20 | Emergency (ER) | payer OTHER ==
[2023-11-13] MEDS: Ondansetron 4 MG Tab.DIS PO STA (01:46)
[2023-11-13 01:48] VITALS: BP 109/70; PULSE 76
== END 2023-11-13 02:02 | disposition left against medical advice (07) ==
LOC: MW.ED 23:20
DX: Z53.21 Procedure and treatment not carried out due to patient leaving prior to being seen by health care provider (principal)
CPT/HCPCS: A9270-GY

== ENCOUNTER 2024-02-16 16:18 | Emergency (ER) | payer OTHER ==
[2024-02-16 21:32] VITALS: BP 121/65; PULSE 60
== END 2024-02-16 16:58 | disposition home or self-care (01) ==
LOC: MW.ED 16:18
DX: G90.A Postural orthostatic tachycardia syndrome [POTS] (principal); Z75.8 Other problems related to medical facilities and other health care; Z79.899 Other long term (current) drug therapy; Z88.0 Allergy status to penicillin
CPT/HCPCS: 99284

== ENCOUNTER 2025-05-08 14:28 | Emergency (ER) | payer BC, OTHER ==
[2025-05-08 14:56] VITALS: BP 112/73; PULSE 82
== END 2025-05-08 15:04 | disposition left against medical advice (07) ==
LOC: MW.ED 14:28
DX: Z76.0 Encounter for issue of repeat prescription (principal); Z88.0 Allergy status to penicillin; Z91.018 Allergy to other foods; Z79.899 Other long term (current) drug therapy
CPT/HCPCS: 99281; 99283